=== PATIENT | male | born 1965 | race Caucasian/White ===

== ENCOUNTER 2024-02-05 08:25 | Observation (INO) | payer SELFPAY ==
[2024-02-05] VITALS (7 sets, daily range): BP systolic 151–224; BP diastolic 72–137; PULSE 62–95; RESP 18–20; TEMP 97.3–98.3; O2SAT 90–98
[~2024-02-05] VITALS: Ht 188 cm; Wt 83.9 kg
[2024-02-05] MEDS ORDERED: NS 1000ML 1,000 ML ONE (08:55)
[2024-02-05] MEDS ORDERED: VASOTEC IV ONE (08:55)
[2024-02-05 08:57] LABS: BASOPHIL % 0.5 % (0.2-1.2); EOSINOPHIL # 0.1 10^3/uL (0.0-0.2); EOSINOPHIL % 2.2 % (0.0-5.0); HEMATOCRIT(ML) 46.5 % (37.0-53.0); HEMOGLOBIN 15.7 g/dL (13.9-16.3); LYMPHOCYTES # 1.15 10^3/uL1 (1.0-4.8); LYMPHOCYTES % 19.6 % (24.0-44.0); MEAN CORP HGB 31.5 pg (26-34); MEAN CORP HGB CONCENTRATION 33.8 g/dL (33-36.5); MEAN CORP VOLUME 93.4 fL (78-100); MONOCYTES # 0.6 10^3/uL (0.3-0.8); MONOCYTES % 9.4 % (5.0-12.0); NEUTROPHILS % 68.3 % (41.0-85.0); RED BLOOD CELL 4.98 10^6/uL (4.50-5.90); RED CELL DISTRIBUTION WIDTH 11.4 % (11.5-14.5); WHITE BLOOD CELL 5.9 10^3/uL (4.5-11.0)
[2024-02-05] MEDS: NS 1000ML 1,000 ML IV ONE (09:00)
[2024-02-05] MEDS: VASOTEC IV PRN (09:00)
[2024-02-05 09:07] LABS: UAMPH METHAMP(SCRN) NEGATIVE (co1000ng/mL); UR MDMA (ECSTASY) SCRN NEGATIVE (c/o300ng/mL); UR METHADONE SCRN NEGATIVE (c/o300ng/mL); UR OPIATE SCRN NEGATIVE (c/o300ng/mL); UR PHENCYCLIDINE (PCP) SCRN NEGATIVE (c/o 25ng/mL); UR TETRAHYDROCANNABINOL SCRN NEGATIVE (c/o 50ng/mL)
[2024-02-05 09:13] LABS: BILIRUBIN,URINE NEGATIVE (NEGATIVE); LEUKOCYTE ESTERASE ,URINE NEGATIVE (NEGATIVE); NITRATE,URINE NEGATIVE (NEGATIVE); UROBILINOGEN,URINE 0.2 E.U./dL (0.2)
[2024-02-05 09:20] LABS: APPEARANCE,URINE CLEAR; TROPONIN I HIGH SENSITIVITY 7 ng/L (0-75); UA COLOR YELLOW
[2024-02-05 09:30] LABS: ALANINE AMINOTRANSFERASE(ML) 16 U/L (12-78); ALBUMIN/GLOBULIN RATIO 0.952; ALKALINE PHOSPHATASE 68 U/L (50-136); ANION GAP 9.3; ASPARTATE AMINO TRANSFERASE 19 U/L (0-35); CARBON DIOXIDE 30.9 mmol/L (20.0-32); EST GFR, NON-AA 77.3 (>/=60); GLUCOSE 103 mg/dL (74-106); POTASSIUM 4.2 mmol/L (3.6-5.2); SODIUM 137 mmol/L (132-145)
[2024-02-05 09:34] LABS: C-REACTIVE PROTEIN < 0.05 mg/dL (0.00-5.00)
[2024-02-05] MEDS ORDERED: ZESTRIL ONE (10:04)
[2024-02-05] MEDS: ZESTRIL PO STA (10:07)
[2024-02-05] MEDS ORDERED: MORPHINE SULFATE IV PRN (13:30)
[2024-02-05] MEDS ORDERED: ZOFRAN IV PRN (13:30)
[2024-02-05] MEDS ORDERED: ULTRAM PO PRN (13:30)
[2024-02-05] MEDS: NORVASC PO SCH (13:32)
[2024-02-05] MEDS: APRESOLINE IV PRN (13:32)
[2024-02-05] MEDS: D5W-1/2 NS/KCL 20MEQ 1,000 ML IV ONE (14:22)
[2024-02-05] MEDS ORDERED: CATAPRES ONE (16:04)
[2024-02-05] MEDS: CATAPRES PO ONE (16:07)
[2024-02-05] MEDS: NORVASC PO STA (16:07)
[2024-02-05] MEDS: CHLORTHALIDONE PO STA (18:38)
[2024-02-05] MEDS ORDERED: ATIVAN IV PRN (20:00)
[2024-02-05] MEDS: VALIUM PO ONE (20:55)
[2024-02-05] MEDS: LOVENOX SQ SCH (20:56)
[2024-02-06] VITALS (22 sets, daily range): BP systolic 126–202; BP diastolic 68–130; PULSE 57–102; RESP 16–18; TEMP 97.5–98.3; O2SAT 92–99
[2024-02-06 06:24] LABS: BASOPHIL % 0.7 % (0.2-1.2); EOSINOPHIL # 0.1 10^3/uL (0.0-0.2); EOSINOPHIL % 2.6 % (0.0-5.0); HEMATOCRIT(ML) 41.5 % (37.0-53.0); HEMOGLOBIN 14.4 g/dL (13.9-16.3); LYMPHOCYTES # 1.16 10^3/uL1 (1.0-4.8); LYMPHOCYTES % 21.3 % (24.0-44.0); MEAN CORP HGB CONCENTRATION 34.7 g/dL (33-36.5); MEAN CORP VOLUME 92.2 fL (78-100); MONOCYTES # 0.6 10^3/uL (0.3-0.8); MONOCYTES % 10.3 % (5.0-12.0); NEUTROPHIL # 3.5 10^3/uL (1.8-7.7); NEUTROPHILS % 64.9 % (41.0-85.0); PLATELET COUNT 212 10^3/uL (150-400); RED CELL DISTRIBUTION WIDTH 11.7 % (11.5-14.5); WHITE BLOOD CELL 5.5 10^3/uL (4.5-11.0)
[2024-02-06 06:36] LABS: INR 0.9; PROTHROMBIN PROTIME 9.8 SEC (9.7-11.6)
[2024-02-06 06:41] LABS: +ADD MANUAL DIFF(NO CHRG) NO
[2024-02-06 06:57] LABS: ALBUMIN(ML) 3.3 g/dL (3.4-5.0); ALBUMIN/GLOBULIN RATIO 0.916; ANION GAP 12.1; BUN/CREATININE RATIO 11.34 (10.0-20.0); CALCIUM 8.5 mg/dL (8.4-10.5); CARBON DIOXIDE 24.8 mmol/L (20.0-32); CREATININE SERUM 0.97 mg/dL (0.59-1.40); EST GFR, NON-AA 80.1 (>/=60); POTASSIUM 3.9 mmol/L (3.6-5.2)
[2024-02-06] MEDS: FOLIC ACID PO SCH (09:00)
[2024-02-06] MEDS: THIAMINE HCL PO SCH (09:00)
[2024-02-06] MEDS: NORVASC PO SCH (09:00)
[2024-02-06] MEDS: PROTONIX IV IV SCH (09:00)
[2024-02-06] MEDS: COZAAR PO SCH (09:00)
[2024-02-06] MEDS ORDERED: SODIUM CHLORIDE IRR BOTTLE IR ONE (09:08)
[2024-02-06] MEDS ORDERED: MARCAINE 0.25%-EPI 1:200,000 ONE (09:08)
[2024-02-06] MEDS ORDERED: ISOTON GENTAMICIN 80 MG/100 ML 100 ML IV ONE (09:08)
[2024-02-06] MEDS ORDERED: LACTATED RINGERS 1,000 ML ONE (09:14)
[2024-02-06] MEDS ORDERED: MEFOXIN ONE ×2 (09:22→13:35)
[2024-02-06] MEDS: LACTATED RINGERS 1,000 ML IV ONE (09:34)
[2024-02-06] MEDS ORDERED: EXPAREL 266 MG/20 ML VIAL IJ ONE (10:45)
[2024-02-06] MEDS ORDERED: XYLOCAINE 2% 5ML VIAL ONE (10:49)
[2024-02-06] MEDS ORDERED: TORADOL ONE (10:49)
[2024-02-06] MEDS ORDERED: ZOFRAN ONE (10:49)
[2024-02-06] MEDS ORDERED: BRIDION IV ONE (10:49)
[2024-02-06] MEDS ORDERED: OFIRMEV 1000 MG/100 ML 100 ML IV ONE (10:49)
[2024-02-06] MEDS ORDERED: DECADRON ONE (10:49)
[2024-02-06] MEDS ORDERED: DILAUDID ONE ×2 (10:50→12:53)
[2024-02-06] MEDS ORDERED: ZEMURON IV ONE (10:51)
[2024-02-06] MEDS ORDERED: DIPRIVAN IV ONE (10:51)
[2024-02-06] MEDS ORDERED: SUBLIMAZE 100MCG/2ML ONE (12:53)
[2024-02-06] MEDS: DILAUDID IV ONE ×3 (14:25→14:49)
[2024-02-06] MEDS: KEFLEX PO SCH (15:00)
[2024-02-06] MEDS ORDERED: MORPHINE SULFATE IV PRN (16:30)
[2024-02-06] MEDS ORDERED: NS 500ML 500 ML IV ONE (20:11)
[2024-02-06] MEDS: CHLORTHALIDONE PO SCH (20:16)
[2024-02-06] MEDS: OFIRMEV 1000 MG/100 ML 100 ML IV SCH (20:17)
[2024-02-06] MEDS ORDERED: MOTRIN PO ONE (21:49)
[2024-02-06] MEDS: CATAPRES PO SCH (21:51)
[2024-02-06] MEDS: VALIUM PO STA (21:51)
[2024-02-06] MEDS: MOTRIN PO SCH (21:51)
[2024-02-06] MEDS: COZAAR PO STA (21:52)
[2024-02-06] MEDS: MYLANTA PO PRN (22:09)
[2024-02-07 04:16] VITALS: BP 123/79; PULSE 66; RESP 18; TEMP 97.8; O2SAT 97
[2024-02-07 05:01] LABS: BASOPHIL % 0.1 % (0.2-1.2); EOSINOPHIL % 0.1 % (0.0-5.0); HEMATOCRIT(ML) 40.7 % (37.0-53.0); HEMOGLOBIN 14.2 g/dL (13.9-16.3); LYMPHOCYTES # 1.05 10^3/uL1 (1.0-4.8); LYMPHOCYTES % 8.8 % (24.0-44.0); MEAN CORP HGB 32.2 pg (26-34); MEAN CORP HGB CONCENTRATION 34.9 g/dL (33-36.5); MEAN CORP VOLUME 92.3 fL (78-100); MONOCYTES % 8.8 % (5.0-12.0); NEUTROPHIL # 9.8 10^3/uL (1.8-7.7); PLATELET COUNT 218 10^3/uL (150-400); RED BLOOD CELL 4.41 10^6/uL (4.50-5.90); RED CELL DISTRIBUTION WIDTH 11.4 % (11.5-14.5); WHITE BLOOD CELL 11.9 10^3/uL (4.5-11.0)
[2024-02-07 05:04] LABS: +ADD MANUAL DIFF(NO CHRG) NO
[2024-02-07 05:28] LABS: ALBUMIN/GLOBULIN RATIO 0.857; ANION GAP 12.6; BUN/CREATININE RATIO 11.34 (10.0-20.0); CALCIUM 8.7 mg/dL (8.4-10.5); CARBON DIOXIDE 25.4 mmol/L (20.0-32); CREATININE SERUM 0.97 mg/dL (0.59-1.40); EST GFR, NON-AA 80.1 (>/=60)
[2024-02-07 07:32] VITALS: BP 138/97; PULSE 93; RESP 18; TEMP 97.3; O2SAT 96
[2024-02-07] MEDS: THERA PO SCH (08:55)
[2024-02-07] MEDS: PROTONIX PO SCH (08:55)
[2024-02-07] MEDS: COZAAR PO SCH (08:55)
[2024-02-07] MEDS: CHLORTHALIDONE PO SCH (11:18)
[2024-02-07 11:28] VITALS: BP 163/103; PULSE 85; RESP 18; TEMP 97.9; O2SAT 95
[2024-02-07 16:19] VITALS: BP 117/74; PULSE 78; RESP 18; TEMP 97.2; O2SAT 96
[2024-02-07] MEDS ORDERED: CEPH250C PO (16:23)
[2024-02-07] MEDS ORDERED: LOSA-400 PO (16:23)
[2024-02-07] MEDS ORDERED: CHLO25TA PO (16:23)
[2024-02-07] MEDS ORDERED: ACET1TAB57 PO (16:23)
[2024-02-07] MEDS ORDERED: AMLO-170 PO (16:23)
[2024-02-07 16:53] VITALS: BP 117/74; PULSE 78; RESP 18; TEMP 97.2; O2SAT 96
[2024-02-07] MEDS ORDERED: NORVASC PO SCH (21:00)
== END 2024-02-07 16:42 | disposition home or self-care (01) ==
LOC: ER 08:25 → OBS 11:22
PROVIDERS: ADMIT Student in an Organized Health Care Education/Training Program; ATTEND Student in an Organized Health Care Education/Training Program
DX: K40.90 Unilateral inguinal hernia, without obstruction or gangrene, not specified as recurrent (principal); K43.9 Ventral hernia without obstruction or gangrene; K46.9 Unspecified abdominal hernia without obstruction or gangrene; I16.0 Hypertensive urgency; I1A.0 Resistant hypertension; B07.9 Viral wart, unspecified; R82.4 Acetonuria; D17.6 Benign lipomatous neoplasm of spermatic cord; L98.9 Disorder of the skin and subcutaneous tissue, unspecified; Z72.0 Tobacco use; Z79.899 Other long term (current) drug therapy; Z98.890 Other specified postprocedural states
CPT/HCPCS: 36415; 76705; 80053; 80307; 81003; 82077; 83690; 83735; 84145; 84443; 84484; 85025; 85610; 85730; 86140; 93005; 93306; 96365; 96366; 96372; 96375; 96376; 99291; A4217; A6222; A6258; C9290; G0378; J0131; J0360; J0694; J1100; J1171; J1580; J1650; J1885; J2003; J2405; J2704; J3010; J3490; J7030; J7040; J7070; J7120; 88302; 88304; 88305; C1781